=== PATIENT | female | born 1985 | race Caucasian/White ===

== ENCOUNTER → 2017-02-26 | Outpatient (CLI) | payer OTHER ==
[~2017-02-26] VITALS: Ht 170.2 cm; Wt 73.3 kg
[~2017-02-26] MED LIST: ARMOUR THYROID60 M1 PO; BUPROPION XL150 MG PO; CELEBREX 200 M200 MG PO; PROZAC20 MG PO; UNICOMPLEX M TA1 TA1 PO; tumeric PO
--- NOTE | ~2017-02-26 | HPC ---
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 She has failed conservative therapy. We sought authorization for epidural injection, which was accomplished on 01/22/2017. She returns to pain clinic today noting that the epidural injection ultimately did help with subjective pain, but she now has more concern for paresthesia in the left lateral leg and now a new issue of paresthesia in the left forearm and fourth and fifth finger. PHYSICAL EXAMINATION: Shows 31-year-old female, BMI is 25.3 kilograms per meter squared. Vital signs stable as noted on the EMR. Cervical range of motion is full. Upper extremity strength is preserved. Deep tendon reflexes are symmetric. Tinel's is negative. Subjective paresthesia in the hand and fourth and fifth finger. She also has a little paresthesia in the right hand as well. Rises from chair using armrest. Gait is tandem. Lower extremity strength is preserved. Straight leg raise is negative at this time. ASSESSMENT: Neuropathic pain in a patient with a history of lumbar radiculopathy. Concern for demyelinating disease with paresthesia in upper and lower extremities in a 31-year-old female. RECOMMENDATION: I am referring the patient to [facility] consultants for further evaluation. May benefit from EMG plus/minus CSF exam. Today, we elected to postpone any interventional therapy, really no subjective pain issues are noted. I will be happy to see the patient back after Neurology evaluation. <ELECTRONICALLY SIGNED> By: Perry Melvin DO 03/03/17 [id number] Perry Melvin DO /nt
[2017-02-26 10:53] VITALS: BP 105/72
== END ==
LOC: PAIN 06:58
DX: M79.2 Neuralgia and neuritis, unspecified (principal); Z87.898 Personal history of other specified conditions